=== PATIENT | male | born 1945 | race Caucasian/White ===

== ENCOUNTER → 2018-04-08 09:05 | Outpatient (POV) | payer OTHER, MEDICARE, SELFPAY | PROVIDERS: Visit Provider Dermatology | DX: Z00.00 Encounter for general adult medical examination without abnormal findings (principal) ==

== ENCOUNTER → 2018-05-20 09:32 | Outpatient (POV) | payer OTHER, MEDICARE, SELFPAY | PROVIDERS: Visit Provider Dermatology | DX: Z00.00 Encounter for general adult medical examination without abnormal findings (principal) ==

== ENCOUNTER → 2018-05-27 07:52 | Outpatient (POV) | payer OTHER, MEDICARE, SELFPAY | PROVIDERS: Visit Provider Dermatology | DX: Z00.00 Encounter for general adult medical examination without abnormal findings (principal) ==

== ENCOUNTER → 2018-07-29 08:00 | Outpatient (POV) | payer OTHER, MEDICARE, SELFPAY | PROVIDERS: Visit Provider Dermatology | DX: Z00.00 Encounter for general adult medical examination without abnormal findings (principal) ==

== ENCOUNTER → 2019-09-22 13:37 | Outpatient (POV) | payer OTHER, MEDICARE, SELFPAY | PROVIDERS: PCP Internal Medicine; Visit Provider Dermatology | DX: Z00.00 Encounter for general adult medical examination without abnormal findings (principal) ==

== ENCOUNTER → 2019-10-20 08:27 | Outpatient (POV) | payer OTHER, MEDICARE, SELFPAY | PROVIDERS: PCP Internal Medicine; Visit Provider Dermatology | DX: Z00.00 Encounter for general adult medical examination without abnormal findings (principal) ==

== ENCOUNTER → 2020-05-31 09:49 | Outpatient (POV) | payer OTHER, MEDICARE, SELFPAY | PROVIDERS: Visit Provider Dermatology | DX: Z00.00 Encounter for general adult medical examination without abnormal findings (principal) ==

== ENCOUNTER → 2021-01-16 17:53 | Outpatient (CLI) | payer MEDICARE, SELFPAY ==
[2021-01-16 18:39] LABS: Basophils # 0.1 K/mm3 (0-0.2); Basophils % 1.6 % (0.1-2.0); Eosinophils # 0.2 K/mm3 (0.0-0.4); Eosinophils % 2.8 % (0.1-12.0); Hematocrit 46.1 % (42.0-52.0); Hemoglobin 15.3 g/dL (14.1-18.0); Lymphocytes # 2.1 K/mm3 (0.7-4.5); Lymphocytes % 27.7 % (10-50); Mean Corpuscular HGB Conc 33.1 g/dL (31.8-35.4); Mean Corpuscular Volume 93.4 fl (80-94); Mean Platelet Volume 9.6 fl (7.4-10.4); Monocytes # 0.4 K/mm3 (0.1-1.0); Monocytes % 4.7 % (1.7-9.3); Neutrophils # 4.8 K/mm3 (1.8-7.8); Neutrophils % 63.2 % (37.0-80.0); Platelet Count 192 K/mm3 (142-424); Red Blood Count 4.94 M/mm3 (4.60-6.20); Red Cell Distribution Width 14.2 % (11.5-17.5); White Blood Count 7.5 K/mm3 (4.8-10.8)
[2021-01-16 18:55] LABS: Alanine Aminotransferase 21 U/L (12-78); Albumin Level 4.5 g/dl (3.5-5.0); Albumin/Globulin Ratio 1.6 (1.1-1.8); Alkaline Phosphatase 87 U/L (38-126); Aspartate Amino Transferase 32 U/L (17-59); Bilirubin,Total 0.9 mg/dl (0.2-1.3); Blood Urea Nitrogen 14 mg/dl (9-20); Carbon Dioxide 29 mmol/L (22.0-30.0); Chloride 101 mmol/L (98-107); Chol/HDL Ratio 4.9 (1-3.5); Cholesterol 199 mg/dl (140-200); Estimated Glomerular Filt Rate 83 ml/min (>60); GFR (African American) 100 ML/MIN (>60); Globulin 2.8 g/dL (1.3-3.2); Glucose 93 mg/dl (74-100); HDL Cholesterol 41 mg/dl (40-60); Sodium 141 mmol/L (136-145); Total Protein,Serum 7.3 g/dl (6.3-8.2); Triglycerides 167 mg/dl (30-150); VLDL Cholesterol 33 mg/dL (0-40)
[2021-01-16 19:06] LABS: Direct LDL Cholesterol 136.75 mg/dL (100-129)
[2021-01-17 09:37] LABS: Prostate Specific Ag, Diagnost 7.42 ng/ml (0.0-4.0)
== END ==
PROVIDERS: Visit Provider Internal Medicine
DX: I25.10 Atherosclerotic heart disease of native coronary artery without angina pectoris (principal); I10 Essential (primary) hypertension; C43.71 Malignant melanoma of right lower limb, including hip; C61 Malignant neoplasm of prostate; E78.5 Hyperlipidemia, unspecified; E53.8 Deficiency of other specified B group vitamins
CPT/HCPCS: 80053; 80061; 84153; 85025

== ENCOUNTER → 2021-06-20 11:17 | Outpatient (POV) | payer MEDICARE, SELFPAY | PROVIDERS: Visit Provider Dermatology | DX: Z00.00 Encounter for general adult medical examination without abnormal findings (principal) ==

== ENCOUNTER → 2021-07-18 12:24 | Outpatient (CLI) | payer MEDICARE, SELFPAY ==
[2021-07-18 13:49] LABS: Alanine Aminotransferase 30 U/L (12-78); Albumin Level 4.3 g/dl (3.5-5.0); Albumin/Globulin Ratio 1.4 (1.1-1.8); Alkaline Phosphatase 87 U/L (38-126); Anion Gap 12.8 mEq/L (5-15); Aspartate Amino Transferase 41 U/L (17-59); Blood Urea Nitrogen 14 mg/dl (9-20); Calcium 8.8 mg/dl (8.4-10.2); Carbon Dioxide 29 mmol/L (22.0-30.0); Chloride 104 mmol/L (98-107); Chol/HDL Ratio 5.8 (1-3.5); Cholesterol 207 mg/dl (140-200); Estimated Glomerular Filt Rate 82 ml/min (>60); GFR (African American) 100 ML/MIN (>60); Glucose 117 mg/dl (74-100); HDL Cholesterol 36 mg/dl (40-60); Potassium 3.8 mmoL/L (3.5-5.1); Sodium 142 mmol/L (136-145); Total Protein,Serum 7.3 g/dl (6.3-8.2); Triglycerides 147 mg/dl (30-150); VLDL Cholesterol 29 mg/dL (0-40)
[2021-07-18 14:00] LABS: Direct LDL Cholesterol 139.82 mg/dL (100-129)
[2021-07-18 14:37] LABS: Vitamin B12 609 pg/mL (239-931)
== END ==
PROVIDERS: PCP Internal Medicine; Visit Provider Internal Medicine
DX: I25.10 Atherosclerotic heart disease of native coronary artery without angina pectoris (principal); I10 Essential (primary) hypertension; E78.5 Hyperlipidemia, unspecified; E53.8 Deficiency of other specified B group vitamins; G60.9 Hereditary and idiopathic neuropathy, unspecified
CPT/HCPCS: 80053; 80061; 82607

== ENCOUNTER → 2022-05-09 12:53 | Outpatient (CLI) | payer MEDICARE, SELFPAY ==
[2022-05-09 13:37] LABS: Basophils # 0.1 K/mm3 (0-0.2); Basophils % 0.7 % (0.1-2.0); Eosinophils # 0.2 K/mm3 (0.0-0.4); Eosinophils % 3.5 % (0.1-12.0); Hematocrit 45.5 % (42.0-52.0); Hemoglobin 15.7 g/dL (14.1-18.0); Lymphocytes # 1.8 K/mm3 (0.7-4.5); Lymphocytes % 26.7 % (10-50); Mean Corpuscular HGB Conc 34.5 g/dL (31.8-35.4); Mean Corpuscular Hemoglobin 30.6 pg (27.0-31.2); Mean Corpuscular Volume 88.7 fl (80-94); Mean Platelet Volume 9.4 fl (7.4-10.4); Monocytes # 0.3 K/mm3 (0.1-1.0); Neutrophils # 4.4 K/mm3 (1.8-7.8); Neutrophils % 64.2 % (37.0-80.0); Platelet Count 190 K/mm3 (142-424); Red Blood Count 5.13 M/mm3 (4.60-6.20); Red Cell Distribution Width 14.4 % (11.5-17.5); White Blood Count 6.9 K/mm3 (4.8-10.8)
[2022-05-09 14:40] LABS: Alanine Aminotransferase 20 U/L (12-78); Albumin Level 4.6 g/dl (3.5-5.0); Albumin/Globulin Ratio 1.6 (1.1-1.8); Alkaline Phosphatase 109 U/L (38-126); Anion Gap 11.7 mEq/L (5-15); Aspartate Amino Transferase 30 U/L (17-59); Bilirubin,Total 1.5 mg/dl (0.2-1.3); Blood Urea Nitrogen 12 mg/dl (9-20); Calcium 8.6 mg/dl (8.4-10.2); Carbon Dioxide 27 mmol/L (22.0-30.0); Chloride 104 mmol/L (98-107); Chol/HDL Ratio 5.8 (1-3.5); Cholesterol 203 mg/dl (140-200); Estimated Glomerular Filt Rate 73 ml/min (>60); GFR (African American) 88 ML/MIN (>60); Globulin 2.9 g/dL (1.3-3.2); Glucose 103 mg/dl (74-100); HDL Cholesterol 35 mg/dl (40-60); Potassium 3.7 mmoL/L (3.5-5.1); Sodium 139 mmol/L (136-145); Total Protein,Serum 7.5 g/dl (6.3-8.2); Triglycerides 210 mg/dl (30-150); VLDL Cholesterol 42 mg/dL (0-40)
[2022-05-09 14:50] LABS: Direct LDL Cholesterol 136.64 mg/dL (100-129)
[2022-05-09 15:08] LABS: Prostate Specific Ag Screen 7.6 ng/ml (0.0-4.0)
[2022-05-09 15:27] LABS: Vitamin B12 325 pg/mL (239-931)
== END ==
PROVIDERS: PCP Internal Medicine; Visit Provider Internal Medicine
DX: I10 Essential (primary) hypertension (principal); E53.8 Deficiency of other specified B group vitamins; E78.5 Hyperlipidemia, unspecified; K58.0 Irritable bowel syndrome with diarrhea; C61 Malignant neoplasm of prostate; Z12.5 Encounter for screening for malignant neoplasm of prostate
CPT/HCPCS: 80053; 80061; 82607; 85025; G0103

== ENCOUNTER 2023-03-26 13:06 | Outpatient (POV) | payer MEDICARE, SELFPAY | END 2023-03-26 23:59 | disposition home or self-care (01) | LOC: SC 13:07 | PROVIDERS: PCP Internal Medicine; Visit Provider Dermatology | DX: Z00.00 Encounter for general adult medical examination without abnormal findings (principal) ==

== ENCOUNTER 2023-10-22 14:20 | Outpatient (POV) | payer MEDICARE, SELFPAY | END 2023-10-22 23:59 | disposition home or self-care (01) | LOC: SC 14:20 | PROVIDERS: PCP Internal Medicine; Visit Provider Dermatology | DX: Z00.00 Encounter for general adult medical examination without abnormal findings (principal) ==

== ENCOUNTER 2024-05-03 23:20 | Emergency (ER) | payer MEDICARE, SELFPAY ==
[2024-05-03 23:22] VITALS: BP 162/77; PULSE 96; RESP 28; TEMP 36.9; O2SAT 94; BMI 29.7
--- NOTE | 2024-05-03 23:37 | CT_ITS ---
PROCEDURE INFORMATION: Exam: CTA Abdomen and Pelvis With Contrast Exam date and time: 05/04/2024 12:19 AM Age: 79 years old Clinical indication: Abdominal pain; Generalized; Additional info: L lateral side pain, known melanoma TECHNIQUE: Imaging protocol: Computed tomographic angiography of the abdomen and pelvis with contrast. Exam focused on the arteries. 3D rendering (Not supervised by radiologist): MIP and/or 3D reconstructed images were created by the technologist. Radiation optimization: All CT scans at this facility use at least one of these dose optimization techniques: automated exposure control; mA and/or kV adjustment per patient size (includes targeted exams where dose is matched to clinical indication); or iterative reconstruction. Contrast material: ISOVUE; Contrast volume: 70 ml; Contrast route: INTRAVENOUS (IV); COMPARISON: CT ANGIO CHEST PE PROTOCOL 05/04/2024 12:19 AM FINDINGS: Aorta: No aortic aneurysm. No aortic dissection. Celiac trunk and mesenteric arteries: No occlusion or significant stenosis. Renal arteries: No occlusion or significant stenosis. Right iliac arteries: No occlusion or significant stenosis. Left iliac arteries: No occlusion or significant stenosis. Liver: No mass. Gallbladder and biliary ducts: Cholecystectomy Pancreas: Unremarkable. No mass. No ductal dilation. Spleen: Unremarkable. No splenomegaly. Adrenal glands: Unremarkable. No mass. Kidneys and ureters: Simple cyst in the right kidney requiring no further follow-up 3 cm Stomach and bowel: Unremarkable. No obstruction. No mucosal thickening. Appendix: No evidence of appendicitis. Intraperitoneal space: Unremarkable. No free air. No significant fluid collection. Lymph nodes: Unremarkable. No enlarged lymph nodes. Urinary bladder: Mild cystitis Reproductive: Unremarkable as visualized. Bones/joints: No acute fracture. Soft tissues: Small left inguinal hernia with fat IMPRESSION: 1. Cystitis otherwise no additional acute intra-abdominal or intrapelvic process 2. Abnormalities in the lung bases described on chest CT performed the same day
--- NOTE | 2024-05-03 23:37 | CT_ITS ---
PROCEDURE INFORMATION: Exam: CTA Chest With Contrast Exam date and time: 05/04/2024 12:19 AM Age: 79 years old Clinical indication: Pain; Left-sided; Additional info: L side pain melanoma PT TECHNIQUE: Imaging protocol: Computed tomographic angiography of the chest with contrast. Exam focused on the arteries. 3D rendering (Not supervised by radiologist): MIP and/or 3D reconstructed images were created by the technologist. Radiation optimization: All CT scans at this facility use at least one of these dose optimization techniques: automated exposure control; mA and/or kV adjustment per patient size (includes targeted exams where dose is matched to clinical indication); or iterative reconstruction. Contrast material: ISOVUE; Contrast volume: 70 ml; Contrast route: INTRAVENOUS (IV); COMPARISON: CT ANGIO ABDOMEN PELVIS 05/04/2024 12:19 AM FINDINGS: Pulmonary arteries: Normal. No pulmonary emboli. Aorta: Unremarkable. No aortic aneurysm. No aortic dissection. Lungs: Innumerable bilateral pulmonary nodules and masses reflecting metastatic disease. In the lung bases there is mild atelectasis versus early developing pneumonia Pleural spaces: Tiny bilateral pleural effusions. Heart: Unremarkable. No cardiomegaly. No pericardial effusion. Lymph nodes: Unremarkable. No enlarged lymph nodes. Bones/joints: Multilevel anterior bridging osteophyte formation. Soft tissues: Unremarkable. IMPRESSION: 1. No pulmonary embolism 2. Tiny bilateral pleural effusions. 3. Innumerable bilateral pulmonary nodules and masses reflecting metastatic disease. In the lung bases there is mild atelectasis versus early developing pneumonia
[2024-05-03 23:38] VITALS: BP 130/66; PULSE 85; O2SAT 95
--- NOTE | 2024-05-03 23:40 | ECG_ITS ---
APPROVED REPORT Exam: Resting ECG HR:83 bpm ECG Measurements Heart Rate 83 AXES QRSd 118 QRS -10 QT 378 T 31 QTc 418 Conclusion Sinus rhythm INCOMPLETE RIGHT BUNDLE BRANCH BLOCK [90+ ms QRS DURATION, TERMINAL R IN V1/V2, 40+ ms S IN I/aVL/V4/V5/V6] NONSPECIFIC T-WAVE ABNORMALITY No STEMI Electronically signed by : ROSE ORTEGA, 05/04/2024 06:31:40
--- NOTE | 2024-05-03 23:40 | HMH.EDGENADL ---
Discharge Plan Disposition Patient Disposition: Admitted Condition: Fair Prescriptions Prescriptions: No Action cyanocobalamin (vitamin B-12) 1,000 mcg tablet 1,000 mcg PO Patient Comments: TAKE ONE TABLET BY MOUTH EVERY DAY urea 45 % lotion 1 applic TOPICAL BID 90 Days Qty: 480 3RF atorvastatin 20 mg tablet 20 mg PO lisinopril-hydrochlorothiazide 10-12.5 mg tablet 1 tab PO DAILY Qty: 90 1RF Referrals Follow up/Referrals: Aaron Reinoso MD [Primary Care Provider] - See instructions Clinical Impressions Clinical Impression: Left-sided chest wall pain, Pleural effusion, Metastatic cancer Print Language Print Language: Citizen Of [place] Discharge ED Provider: Nicol Barone General Adult HPI General Chief complaint: PAIN Stated complaint: L side pain Time Seen by Provider: 05/03/24 23:24 History of Present Illness HPI narrative: 79-year-old male with known active melanoma currently on an experimental immunotherapy from [facility] presents to the ER with concerns of left side pain. Reportedly approximately 2 to 3 hours after dinner, around 9 PM, patient developed left side pain. Patient reports sharp pain and demonstrates to his left lateral ribs/flank. He states it does not radiate. He states it is worse with bending or twisting and movement, better at rest. gave the patient 3 Tylenol prior to arrival. He is not requesting any pain medication at this time. He denies any chest pain or difficulty breathing, pain is not worse with deep inspiration, he denies any dysuria or hematuria, no abdominal pain, nausea, vomiting, diarrhea, or constipation. Patient just started his third round of experimental treatment on Saturday and is taking this at home. Reportedly he is supposed to go back to [facility] on Saturday, 3 days from now, for a biopsy of a newly identified lesion on his skull according to . They report the patient has frequent full body imaging and does not have any other known sites of metastasis. Patient has no history of blood clot, kidney stone, bowel obstruction, or cardiac problems. Reportedly the only medications he is currently on are related to his cancer therapy. He has had no recent illness and denies fevers, chills, cough, congestion, or other associated symptoms. Related Data Home Medications ?Medication ?Instructions ?Recorded ?Confirmed cyanocobalamin (vitamin B-12) 1,000 mcg PO 10/12/20 07/26/21 1,000 mcg tablet atorvastatin 20 mg tablet 20 mg PO 07/26/21 07/26/21 Previous Rx's ?Medication ?Instructions ?Recorded urea 45 % lotion 1 applic topical BID dry skin 3 04/27/21 months #480 grams lisinopril 10 1 tab PO DAILY #90 tabs 08/28/ mg-hydrochlorothiazide 12.5 mg tablet Allergies Allergy/AdvReac Type Severity Reaction Status Date / Time No Known Allergies Allergy Verified 07/26/21 11:29 [facility] Disclaimer: The information contained in this section may have been updated after the patient was seen, as this information can be updated by other users. Social History Smoking Status: Never smoker alcohol intake: never current occupational status: retired Travel in the last 8 weeks: None Have you lived/traveled outside US in past 30 days?: No Contact w/someone who lives/traveled outside US past 30 days?: No Exposure to someone with infectious disease in past 14 days?: No Do you have a fever (greater than 100.4 F or 38 C)?: No Have you tested positive for COVID-19: No Exposed to someone with COVID-19 in past 14 days?: No Do you have a sore throat?: No Do you have a cough?: No Do you have any weakness?: No Do you have any diarrhea?: No Are you experiencing any unusual bleeding?: No Do you have any muscle aches/pain?: Yes Do you have any abdominal pain?: Yes Are you experiencing loss of taste or smell?: No Other Medical History Have you received the Pneumonia Vaccine: No ROS Obtained: Yes Systems reviewed as appropriate & no additional complaints except as documented per hpi Physical Exam General General appearance: alert and in no apparent distress Head Head exam: atraumatic and normocephalic Eye Eye exam: Present PERRL and EOMI ENT ENT exam: Present mucous membranes moist Neck Neck exam: Present normal inspection and full ROM Chest Chest inspection: Present symmetric chest wall rise and tenderness (Left lateral chest wall tenderness over the inferior, lateral ribs without findings of trauma, no overlying skin changes) Respiratory Respiratory exam: Present normal lung sounds bilaterally; Absent respiratory distress, wheezes or stridor Cardiovascular Cardiovascular exam: Present normal rhythm and tachycardia Abdominal Exam Abdominal exam: Present soft; Absent distention, tenderness, guarding or rebound Extremities Exam Extremities exam: Present full ROM and other (Right lower extremity bandaged secondary to melanoma wound, no findings of infection); Absent edema Back Exam Back exam: Absent CVA tenderness (R), CVA tenderness (L), paraspinal tenderness or vertebral tenderness Neurological Exam Neurological exam: Present alert, oriented X3 and normal gait; Absent motor sensory deficit Psychiatric Psychiatric exam: Present normal affect and normal mood Skin Skin exam: Present warm and dry; Absent rash Medical Decision Making Medical Records Screening: Per USPSTF and CDC recommendations, given the prevalence of disease in our region, it is our hospital?s policy to screen for HIV and viral Hepatitis for all patients aged 18 and over and those with ongoing risk factors. Quan Inquiry Pt receiving controlled substance: No Vital Signs: 05/03/24 23:22 05/03/24 23:38 05/04/24 00:00 Temperature 98.5 F Temperature Source Oral Pulse Rate 85 78 Pulse Rate [Left Radial] 96 H Respiratory Rate 28 H 22 Blood Pressure 130/66 125/65 Blood Pressure [Right Arm] 162/77 H Blood Pressure Mean [Right Arm] 105 Blood Pressure Source [Right Arm] Automatic Cuff Blood Pressure Position [Right Arm] Sitting 02 Sat by Pulse Oximetry 94 L 95 95 Oxygen Delivery Method Room Air 05/04/24 00:30 05/04/24 01:00 05/04/24 01:29 Temperature Temperature Source Pulse Rate 77 72 72 Pulse Rate [Left Radial] Respiratory Rate 21 24 22 Blood Pressure 130/66 124/63 128/66 Blood Pressure [Right Arm] Blood Pressure Mean [Right Arm] Blood Pressure Source [Right Arm] Blood Pressure Position [Right Arm] 02 Sat by Pulse Oximetry 96 96 96 Oxygen Delivery Method 05/04/24 02:00 05/04/24 02:30 05/04/24 03:00 Temperature Temperature Source Pulse Rate 71 73 75 Pulse Rate [Left Radial] Respiratory Rate 18 21 24 Blood Pressure 118/59 L 126/67 131/70 Blood Pressure [Right Arm] Blood Pressure Mean [Right Arm] Blood Pressure Source [Right Arm] Blood Pressure Position [Right Arm] 02 Sat by Pulse Oximetry 96 95 96 Oxygen Delivery Method 05/04/24 03:30 05/04/24 04:00 Temperature Temperature Source Pulse Rate 75 75 Pulse Rate [Left Radial] Respiratory Rate 25 H 18 Blood Pressure 142/73 H 132/69 Blood Pressure [Right Arm] Blood Pressure Mean [Right Arm] Blood Pressure Source [Right Arm] Blood Pressure Position [Right Arm] 02 Sat by Pulse Oximetry 95 95 Oxygen Delivery Method Lab Data Lab Results 05/03/24 00:00: NT-Pro-B Natriuret Pep 295 05/03/24 23:37: WBC 4.6 L, RBC 3.65 L, Hgb 11.4 L, Hct 33.9 L, MCV 92.9, MCH 31.2, MCHC 33.6, RDW 15.9, Plt Count 146, MPV 8.7, Neut % (Auto) 54.3, Lymph % (Auto) 30.2, Rains % (Auto) 12.3 H, Eos % (Auto) 2.4, Baso % (Auto) 0.4, Neut # (Auto) 2.5, Lymph # (Auto) 1.4, Rains # (Auto) 0.6, Eos # (Auto) 0.1, Baso # (Auto) 0.0, PT 9.8, INR 0.88 L, Sodium 139, Potassium 4.2, Chloride 107, Carbon Dioxide 23, Anion Gap 13.2, BUN 17, Creatinine 1.10, Estimated Creat Clear 79, Estimated GFR 65, Est GFR ( Amer) 79, Glucose 123 H, Lactate 3.0 H, Calcium 9.0, Total Bilirubin 0.5, AST 22, ALT 16, Alkaline Phosphatase 102, Troponin I < 0.01, Total Protein 6.8, Albumin 3.8, Globulin 3.0, Albumin/Globulin Ratio 1.3, Lipase 245, HCV Ab VALERIE w/Rflx PCR Qn Negative, HIV Ag/Ab Combo Qual Negative 05/03/24 23:47: Urine Color Yellow, Urine Appearance Clear, Urine pH 7.5, Ur Specific [place] 1.020, Urine Protein Negative, Urine Glucose (UA) Negative, Urine Ketones Negative, Urine Blood Negative, Urine Nitrate Negative, Urine Bilirubin Negative, Urine Urobilinogen 1.0, Ur Leukocyte Esterase Trace, Urine RBC None, Urine WBC Occasional, Ur Squamous Epith Cells 3-5, Amorphous Sediment 1+, Urine Bacteria Trace 05/04/24 02:20: Lactate 2.8 H, Troponin I < 0.01 05/03/24 23:37 05/03/24 23:37 Orders (Tests/Meds): ED MEDICATIONS Discontinued Medications Generic Name Dose Route Start Last Admin Trade Name Ted PRN Reason Stop Dose Admin Lactated Ringer's 500 mls @ 999 mls/hr 05/03/24 23:38 05/03/24 23:55 Lactated Ringer's 500ml IV 05/04/24 00:08 999 mls/hr .Q31M ONE Administration Iopamidol 70 ml 05/04/24 00:29 05/04/24 00:30 Iopamidol-370 (76%);100ml Bottle IV 05/04/24 00:30 70 ml ONCE ONE Administration Lidocaine 1 each 05/03/24 23:42 05/03/24 23:55 Lidocaine 5% Transdermal Patch TP 05/03/24 23:43 1 each ONCE ONE Administration Methocarbamol 500 mg 05/04/24 03:46 05/04/24 03:52 Methocarbamol 500mg Tablet PO 05/04/24 03:47 500 mg ONCE ONE Administration Oxycodone HCl 2.5 mg 05/04/24 03:45 05/04/24 03:52 Oxycodone 5mg Immediate Release Tablet PO 05/04/24 03:46 2.5 mg ONCE ONE Administration Sodium Chloride 50 ml 05/04/24 00:29 05/04/24 00:29 0.9 % Sodium Chloride 50 Ml Vial IV 05/04/24 00:30 50 ml ONCE ONE Administration Sodium Chloride 10 ml 05/04/24 00:29 05/04/24 00:29 Sodium Chloride 0.9% 10ml Syr (Rad Only) IV 05/04/24 00:30 10 ml ONCE ONE Administration ORDERS Category Date Time Status CT angio abdomen pelvis Stat Cat Scan 05/03/24 23:[address] angio chest PE protocol Stat Cat Scan 05/03/24 23:37 Completed BNP [NT Pro Brain Natriuretic Pep.] Stat Lab 05/04/24 02:47 Completed CBC w/Auto Diff [Complete Blood Count Auto Diff] Stat Lab 05/03/24 23:37 Completed CMP [Comprehensive Metabolic Panel] Stat Lab 05/03/24 23:37 Completed HIV Combo Stat Lab 05/03/24 23:37 Completed Hepatitis C Ab Qual. W/ RFX Stat Lab 05/03/24 23:37 Completed Lactic Acid Stat Lab 05/03/24 23:37 Completed Lactic Acid Stat Lab 05/04/24 02:20 Completed Lipase Stat Lab 05/03/24 23:37 Completed PT INR [Prothrombin Time INR] Stat Lab 05/03/24 23:37 Completed Trop I [Troponin I] Stat Lab 05/03/24 23:37 Completed Troponin I Q3H Lab 05/04/24 02:20 Completed Troponin I Q3H Lab 05/04/24 05:45 Ordered Urinalysis and Microscopic Stat Lab 05/03/24 23:47 Completed CA echo doppler complete Stat Y 05/04/24 03:44 Ordered ECG Request Stat Y 05/03/24 23:40 Ordered Medical Decision Narrative: HerIn summary, this 79-year-old male with comorbidities described in the HPI which may not be at goal therapy and complicate the amount of data to be reviewed as well as his overall morbidity presents to the emergency department today with left side pain. On initial evaluation patient is mildly tachycardic, he is saturating in the low 90s on room air with good breath sounds throughout, patient has tenderness to palpation and percussion of the left lateral lower ribs without overlying skin changes or evidence of trauma, no CVA tenderness, no tenderness of the vertebral or paraspinal muscles, no overlying skin changes, no abdominal tenderness. Differential diagnosis includes but is not limited to atypical ACS, since patient is a cancer patient he has increased risk of hypercoagulability and could have PE, also considered nephrolithiasis, ureterolithiasis, UTI, pyelonephritis, splenic or kidney infarct, muscle spasm, considered shingles but have no evidence of overlying skin changes, considered bowel obstruction but patient has no abdominal tenderness, nausea, vomiting, or changes in bowel habits. Additionally I considered the possibility of this being a side effect of patient's current immunotherapy. Based on these concerns, I ordered broad workup including serum labs, lactic, lipase, CT imaging of the chest, abdomen, pelvis with angiography studies, cardiac workup. ECG personally interpreted demonstrates sinus rhythm, rate 83, normal axis, normal QTc, right bundle branch block, no STEMI. Patient received lidocaine patch for treatment since he did not want any other pain medications. Labs personally reviewed demonstrate patient is mildly leukopenic with WBC 4.6 but no neutropenia, he is anemic with hemoglobin 11.4, compared to most recent available labs from May 2022, this is down from 15.7. CMP generally unremarkable, patient's lactic is elevated at 3.0, he was receiving IV fluids. Troponin undetectably low less than 0.01, lipase normal at 245, UA negative for findings of infection. CTA PE personally interpreted does not demonstrate large PE, patient has multiple nodules in the bilateral lungs. Concern for significant metastatic burden. Patient also has small bilateral pleural effusion. Radiology read pending. When I discussed these findings with the patient and his , they were not aware of the significant metastatic disease, reported patient had previously had some lung nodules. She was able to find an old CT report from [facility] which she showed me. This demonstrates pulmonary nodularity, they did not discuss pleural effusion or the quantity of nodules. Still unclear if this is new or old. See radiology reads for full interpretations. CT angiography of the abdomen pelvis personally interpreted demonstrates no evidence of splenic infarct or acute kidney problem, see radiology read for final interpretation. Radiology read comments on possible cystitis, however there is not evidence of this on labs I am concerned about patient's elevated lactic as well as pleural effusions and his pain being stable despite receiving lidocaine patch. I had an interactive discussion with Dr. Lerma with [facility] oncology. We reviewed labs and imaging. He is unable to view our images but does state patient has a history of significant nodularity in the bilateral lungs believed to be metastatic. He states the pleural effusions are new. He recommends the patient be admitted to our facility for echo and further cardiac workup to evaluate whether the new bilateral pleural effusions are cardiac in nature. I explained to him that I have low suspicion for cardiac etiology since patient is not having chest pain or difficulty breathing, he also does not have significant peripheral edema. I also explained to him that our facility does not have inpatient oncology and that typically we are not able to admit patients with such significant comorbidities. He stated he does not believe the patient requires transfer and does not believe that the patient requires inpatient oncology treatment at this time and simply requires an echo to evaluate cardiac function and to further evaluate the etiology of his pleural effusions. I explained that I would discuss this with the hospitalist and see what their input is. I discussed this case with Montrell, the hospitalist, he agrees that the patient likely is not appropriate for admission to our facility given his significant comorbidities with the ongoing metastatic melanoma and a clinical trial, however he is going to look into it further and discuss with the attending. Montrell discussed with the attending and evaluated the patient. After discussion with the attending and evaluation of the patient, he recommends ED observation until echo team is available this morning. He also recommended pain control with additional medications. I explained to him I had not administered muscle relaxer or narcotics due to not having an obvious etiology such as fracture, bony metastasis, with which he agrees but recommended additional pain control since patient does have significant pain with palpation. Patient was placed into ED observation at 0350 for continued symptomatic monitoring and management as well as to receive an echo when the team becomes available prior to determining disposition. Repeat lactic still elevated at 2.8, I discussed this with the hospitalist as well, we agree this could be related to tumor burden, immunotherapy, among many other etiologies and that it likely is not contributing to the patient's symptoms at this time. Patient is actively tolerating oral intake. He remains in ED observation. BNP normal at 295. On reassessment nearly 2 hours after receiving additional pain medications, patient still has severe pain with movement and reproducible tenderness. He also is saturating 87 to 90% on room air, nasal cannula applied. I discussed this update with the hospitalist. Patient accepted for admission for echo, pain control, and further evaluation of pleural effusion. Patient admitted in stable condition. Critical Care Critical Care Time Critical Care Time: No
[2024-05-03 23:46] LABS: Basophils % 0.4 % (0.1-2.0); Eosinophils # 0.1 K/mm3 (0.0-0.4); Eosinophils % 2.4 % (0.1-12.0); Hematocrit 33.9 % (42.0-52.0); Hemoglobin 11.4 g/dL (14.1-18.0); Lymphocytes # 1.4 K/mm3 (0.7-4.5); Lymphocytes % 30.2 % (10-50); Mean Corpuscular HGB Conc 33.6 g/dL (31.8-35.4); Mean Corpuscular Hemoglobin 31.2 pg (27.0-31.2); Mean Corpuscular Volume 92.9 fl (80-94); Mean Platelet Volume 8.7 fl (7.4-10.4); Monocytes # 0.6 K/mm3 (0.1-1.0); Monocytes % 12.3 % (1.7-9.3); Neutrophils # 2.5 K/mm3 (1.8-7.8); Neutrophils % 54.3 % (37.0-80.0); Platelet Count 146 K/mm3 (142-424); Red Blood Count 3.65 M/mm3 (4.60-6.20); Red Cell Distribution Width 15.9 % (11.5-17.5); White Blood Count 4.6 K/mm3 (4.8-10.8)
[2024-05-03 23:51] LABS: Microscopic, Urine URINE MICROSCOPIC (MICROSCOPIC)
[2024-05-03 23:54] LABS: Albumin Level 3.8 g/dl (3.5-5.0); Chloride 107 mmol/L (98-107); Potassium 4.2 mmoL/L (3.5-5.1); Sodium 139 mmol/L (136-145)
[2024-05-03] MEDS: RINGERS SOLUTION,LACTATED 500 ML 999 ML IV (23:55)
[2024-05-03] MEDS: LIDOCAINE 5% TRANSDERMAL PATCH 1 EACH TP (23:55)
[2024-05-03 23:57] LABS: Alanine Aminotransferase 16 U/L (12-78); Albumin/Globulin Ratio 1.3 (1.1-1.8); Alkaline Phosphatase 102 U/L (38-126); Anion Gap 13.2 mEq/L (5-15); Aspartate Amino Transferase 22 U/L (17-59); Bilirubin,Total 0.5 mg/dl (0.2-1.3); Blood Urea Nitrogen 17 mg/dl (9-20); Carbon Dioxide 23 mmol/L (22.0-30.0); Creatinine Clearance Estimated 79 mL/min (50-200); Estimated Glomerular Filt Rate 65 ml/min (>60); GFR (African American) 79 ML/MIN (>60); Total Protein,Serum 6.8 g/dl (6.3-8.2)
[2024-05-03 23:58] LABS: Glucose 123 mg/dl (74-100); Lipase 245 U/L (23-300)
[2024-05-03 23:58] LABS: Appearance,Urine CLEAR (Clear); Bilirubin,Urine Negative (Negative); Blood, Urine Negative (Negative); Color,Urine YELLOW (Yellow); Glucose,Urine (UA) Negative (Negative); Ketones,Urine Negative (Negative); Leukocyte Esterase,Urine TRACE (Negative); Nitrate,Urine Negative (Negative); PH,Urine 7.5 (5.0-8.5); Protein,Urine Negative (Negative)
[2024-05-04] VITALS (20 sets, daily range): BP systolic 118–142; BP diastolic 59–73; PULSE 71–86; RESP 13–27; TEMP 36.9; O2SAT 91–98
[2024-05-04 00:11] LABS: Troponin I < 0.01 ng/ml (0.00-0.034)
[2024-05-04 00:14] LABS: Amorphous Sediment,Urine 1+ /lpf; Bacteria,Urine Trace /lpf; WBC,Urine Occasional #/hpf (0-3)
[2024-05-04] MEDS: SODIUM CHLORIDE 0.9% 10ML SYR (RAD ONLY) 10 ML IV (00:29)
[2024-05-04] MEDS: 0.9 % SODIUM CHLORIDE 50 ML VIAL IV (00:29)
[2024-05-04] MEDS: IOPAMIDOL-370 (76%);100ML BOTTLE 70 ML IV (00:30)
[2024-05-04 01:13] LABS: INR 0.88 (0.9-1.1); Prothrombin Time 9.8 seconds (9.2-12.1)
--- NOTE | 2024-05-04 01:20 | PC.NURSE ---
Called [place] transfer center to consult/transfer
--- NOTE | 2024-05-04 01:58 | PC.NURSE ---
rounded on pt. is at bedside. no needs voiced at this time. call light in reach. Waiting for call back from [facility]
[2024-05-04 02:09] LABS: HIV Combo NEGATIVE (Negative)
[2024-05-04 02:17] LABS: Hepatitis C Ab Qual. W/ RFX NEGATIVE (Negative)
--- NOTE | 2024-05-04 02:39 | PC.NURSE ---
Barone speaking to [facility] at this time.
[2024-05-04 02:43] LABS: Lactic Acid 2.8 mmol/L (0.7-2.1)
[2024-05-04 02:51] LABS: Troponin I < 0.01 ng/ml (0.00-0.034)
[2024-05-04 03:19] LABS: NT Pro Brain Natriuretic Pep. 295 pg/mL (0-450)
[2024-05-04 03:43] LABS: Reflex Lactic Add Lactic Reflex
--- NOTE | 2024-05-04 03:44 | CA_ITS ---
APPROVED REPORT EXAM: Comprehensive 2D, Doppler, and color-flow Echocardiogram Dermatologist: Cecilia Desai RDCS Ht: 6 ft 0 in Wt: 219lbs BSA: 2.21 BP: 132/69 mmHg Indications: PL EFF,MELANOMA POOR ACOUSTIC WINDOWS IN APICAL VIEWS M-Mode Dimensions RVDd 1.97 cm (0.9-2.6) LA Diam 4.08 cm (1.9-4.0) LVDd 6.00 cm (3.5-5.7) LVDs 4.36 cm (3.5-5.7) IVSd 0.80 cm (0.6-1.1) PWd 0.80 cm (0.6-1.1) EF (Teich) 52.30% FS 27.30% EDV (Teich) 180.00 mL ESV (Teich) 85.80 mL LV Diastology E Decel Time 207 (160-240 msec) E/A Ratio 0.6 Mitral Valve MV E Max Gabino. 41.0 (40-130 cm/s) MV A Velocity 66.0 (40-130 cm/s) E/A Ratio 0.61 MV PHT 61.0 ms Left Ventricle The left ventricle is normal size. The left ventricular systolic function is normal. The left ventricular ejection fraction is within the normal range. There is increased LV wall thickness. There is normal LV segmental wall motion. Transmitral Doppler flow pattern suggests impaired LV relaxation. LVEF is 55%. Right Ventricle The right ventricle is normal size. The right ventricular systolic function is normal. Atria The left atrium is mildly dilated. The right atrium is not well-visualized. The interatrial septum is not well-visualized. Aortic Valve The aortic valve is mildly thickened. There is no aortic valvular stenosis. No aortic regurgitation is present. Mitral Valve The mitral valve is normal in structure. No evidence of mitral valve stenosis. Trace mitral regurgitation. Tricuspid Valve Tricuspid valve is grossly normal in structure and function. Trace tricuspid regurgitation. There is insufficient TR jet to estimate RVSP. Pulmonic Valve The pulmonary valve is normal in structure. Trace pulmonic regurgitation. Great Vessels The aortic root is normal in size. The ascending aorta is not well-visualized. IVC is normal in size and collapses >50% with inspiration. Pericardium There is no pericardial effusion. Other Information Study Quality: Technically Difficult Conclusion Technically difficult study due to poor acoustic windows. Normal biventricular systolic function. Mild LA dilation. No significant valvular stenosis or regurgitation. Electronically signed by : Mary Lou Catalan MD 05/04/2024 11:57:07
[2024-05-04] MEDS: METHOCARBAMOL 500MG TABLET 500 MG PO (03:52)
[2024-05-04] MEDS: OXYCODONE 5MG IMMEDIATE RELEASE TABLET 2.5 MG PO (03:52)
--- NOTE | 2024-05-04 04:18 | PC.NURSE ---
Rounded on pt. Pt voices no needs. at bedside. call light in reach.
--- NOTE | 2024-05-04 04:21 | EXP.MED.CON ---
Documented by User: Montrell Hartley, RAMONA 05/05/24 06:38 History of Present Illness *Admission Date: 05/04/24 *Reason for visit:: Flank Pain *History of present illness: The patient is a 79-year-old male with known active metastatic melanoma currently enrolled in an experimental immunotherapy program at the [facility]. He presented to the emergency department due to left-sided pain that started around 9:00 PM (approximately two to three hours after dinner). He describes the pain as sharp along the left lateral ribs/flank, worse with bending, twisting, or other movements, and improves with rest. He denies any radiation of pain, no chest pain, difficulty breathing, or worsening with deep inspiration. He also denies dysuria, hematuria, abdominal pain, nausea, vomiting, diarrhea, or constipation. Prior to arrival, his gave him three Tylenol, and he reports that he currently does not require additional pain medication. His past medical history is notable for metastatic melanoma with frequent imaging and a new skull lesion that is scheduled for biopsy in three days at the [facility]. He has no known history of blood clots, kidney stones, bowel obstruction, or cardiac problems. He states that all his current medications are specifically related to his cancer therapy. He denies any recent illness and reports no fevers, chills, cough, or congestion. Vital signs in the emergency department are stable. Preliminary lab work shows mild leukopenia, mild anemia, mild thrombocytopenia, an elevated lactate of 3.0, and a moderately elevated lipase of 245. Urinalysis reveals trace leukocyte esterase and occasional white blood cells, but no RBCs and no significant bacteriuria. A CTA of the chest rules out pulmonary embolism but notes tiny bilateral pleural effusions and innumerable bilateral pulmonary nodules and masses consistent with metastatic disease. Mild atelectasis versus early pneumonia is also noted at the lung bases. A subsequent CT scan of the abdomen shows findings consistent with mild cystitis but no other acute intra-abdominal or intrapelvic process. Overall, the patient remains hemodynamically stable with persistent position-dependent left flank/rib pain as his primary complaint. [facility] Disclaimer: The information contained in this section may have been updated after the patient was seen, as this information can be updated by other users. Social History Smoking Status: Never smoker alcohol intake: never current occupational status: retired Travel in the last 8 weeks: None Review of Systems Review of Systems Review of systems (narrative): 13 point review of systems negative except as listed in HPI Exam Data for Last 24 hours Vital signs and Labs for Last 24 Hours: Temp Pulse Resp BP Pulse Ox O2 Del Method 98.5 F 72 22 128/66 96 Room Air 05/03/24 23:22 05/04/24 01:29 05/04/24 01:29 05/04/24 01:29 05/04/24 01:29 05/03/24 23:22 Laboratory Results - last 24 hr 05/03/24 00:00: NT-Pro-B Natriuret Pep 295 05/03/24 23:37: WBC 4.6 L, RBC 3.65 L, Hgb 11.4 L, Hct 33.9 L, MCV 92.9, MCH 31.2, MCHC 33.6, RDW 15.9, Plt Count 146, MPV 8.7, Neut % (Auto) 54.3, Lymph % (Auto) 30.2, [place] % (Auto) 12.3 H, Eos % (Auto) 2.4, Baso % (Auto) 0.4, Neut # (Auto) 2.5, Lymph # (Auto) 1.4, [place] # (Auto) 0.6, Eos # (Auto) 0.1, Baso # (Auto) 0.0, PT 9.8, INR 0.88 L, Sodium 139, Potassium 4.2, Chloride 107, Carbon Dioxide 23, Anion Gap 13.2, BUN 17, Creatinine 1.10, Estimated Creat Clear 79, Estimated GFR 65, Est GFR ( Amer) 79, Glucose 123 H, Lactate 3.0 H, Calcium 9.0, Total Bilirubin 0.5, AST 22, ALT 16, Alkaline Phosphatase 102, Troponin I < 0.01, Total Protein 6.8, Albumin 3.8, Globulin 3.0, Albumin/Globulin Ratio 1.3, Lipase 245, HCV Ab VALERIE w/Rflx PCR Qn Negative, HIV Ag/Ab Combo Qual Negative 05/03/24 23:47: Urine Color Yellow, Urine Appearance Clear, Urine pH 7.5, Ur Specific [place] 1.020, Urine Protein Negative, Urine Glucose (UA) Negative, Urine Ketones Negative, Urine Blood Negative, Urine Nitrate Negative, Urine Bilirubin Negative, Urine Urobilinogen 1.0, Ur Leukocyte Esterase Trace, Urine RBC None, Urine WBC Occasional, Ur Squamous Epith Cells 3-5, Amorphous Sediment 1+, Urine Bacteria Trace 05/04/24 02:20: Lactate 2.8 H, Troponin I < 0.01 I & O for Last 24 hours: Intake & Output 05/01/24 05/02/24 05/03/24 05/04/24 23:59 23:59 23:59 23:59 Weight 99.337 kg Meds Home Medications and Allergies Home Medications ?Medication ?Instructions ?Recorded ?Confirmed ?Type cyanocobalamin (vitamin B-12) 1,000 mcg PO 10/12/20 07/26/21 History 1,000 mcg tablet urea 45 % lotion 1 applic topical BID dry skin 3 04/27/21 07/26/21 Rx months #480 grams atorvastatin 20 mg tablet 20 mg PO 07/26/21 07/26/21 History lisinopril 10 1 tab PO DAILY #90 tabs 08/29/23 Rx mg-hydrochlorothiazide 12.5 mg tablet New Prescriptions to Start Prescriptions: Allergies Allergy/AdvReac Type Severity Reaction Status Date / Time No Known Allergies Allergy Verified 07/26/21 11:29 Results Labs 05/03/24 23:37 05/03/24 23:37 Labs: Abnormal lab results 05/03/24 05/04/24 Range/Units 23:37 02:20 WBC 4.6 L (4.8-10.8) K/mm3 RBC 3.65 L (4.60-6.20) M/mm3 Hgb 11.4 L (14.1-18.0) g/dL Hct 33.9 L (42.0-52.0) % [place] % (Auto) 12.3 H (1.7-9.3) % INR 0.88 L (0.9-1.1) Glucose 123 H (74-100) mg/dl Lactate 3.0 H 2.8 H (0.7-2.1) mmol/L H & H 05/03/24 Range/Units 23:37 Hgb 11.4 L (14.1-18.0) g/dL Hct 33.9 L (42.0-52.0) % Coagulation 05/03/24 Range/Units 23:37 INR 0.88 L (0.9-1.1) All other labs normal. Assessment and Plan *Assessment and plan (1) Metastatic cancer: Status: Acute Category: Medical Code(s): C79.9 - Secondary malignant neoplasm of unspecified site (2) Pleural effusion: Status: Acute Category: Medical Code(s): J90 - Pleural effusion, not elsewhere classified (3) Left-sided chest wall pain: Status: Acute Category: Medical Code(s): R07.89 - Other chest pain Documented by User: Andrew Duarte MD 05/13/24 08:09 [facility] Social History Smoking Status: Never smoker alcohol intake: never current occupational status: retired Travel in the last 8 weeks: None Exam Constitutional Constitutional: mild distress, average body habitus, chronically ill appearing and cooperative *Routine HEENT Exam Head: Present normocephalic Eye: Present EOMI and PERRL ENT: Present mucous membranes moist *Routine Neck Exam Neck: Present supple; Absent lymphadenopathy *Routine Respiratory Exam Respiratory: Present crackles; Absent rhonchi *Routine Cardiovascular Exam Cardiovascular: Present RRR *Routine Abdominal Exam Abdominal: Present soft and normoactive bowel sounds; Absent tenderness *Routine Rectal Exam Patient deferred: visual exam *Routine Exam Patient deferred: penile exam *Routine Extremities Exam Extremities: Absent cyanosis, clubbing or edema *Routine Skin Exam Skin: Present warm; Absent rash *Routine Neurological Exam Neurological: Present alert, oriented X3 and moving all extremities; Absent altered mental status Meds Home Medications and Allergies Home Medications ?Medication ?Instructions ?Recorded ?Confirmed ?Type cyanocobalamin (vitamin B-12) 1,000 mcg PO 10/12/20 07/26/21 History 1,000 mcg tablet urea 45 % lotion 1 applic topical BID dry skin 3 04/27/21 07/26/21 Rx months #480 grams atorvastatin 20 mg tablet 20 mg PO 07/26/21 07/26/21 History lisinopril 10 1 tab PO DAILY #90 tabs 08/29/23 Rx mg-hydrochlorothiazide 12.5 mg tablet New Prescriptions to Start Prescriptions: Allergies Allergy/AdvReac Type Severity Reaction Status Date / Time No Known Allergies Allergy Verified 07/26/21 11:29 Results Labs 05/03/24 23:37 05/03/24 23:37 Assessment and Plan *Assessment and plan (1) Metastatic cancer: Status: Acute Category: Medical Code(s): C79.9 - Secondary malignant neoplasm of unspecified site (2) Pleural effusion: Status: Acute Category: Medical Code(s): J90 - Pleural effusion, not elsewhere classified (3) Left-sided chest wall pain: Status: Acute Category: Medical Code(s): R07.89 - Other chest pain Plan Mr. Castanon is a 79-year-old male with widely metastatic melanoma on experimental treatment managed by oncology at [facility]. Medicine was consulted to evaluate for possible admission and further management of pleural effusions and pain control. Discussed case with ER physician, they had spoken to oncology at [facility] who recommended admission for echo and further cardiac workup given the new bilateral pleural effusions. eJff had extensive discussion with the ER and requested patient maintain in observation in the ER and have echo performed in the morning prior to considering admission. Echo was obtained and Jesika was contacted again after completing echo. Given the nature of his treatment is experimental, concerned that the etiology of his effusions is related to his malignant melanoma, we do not feel at this time we have the services at our facility to appropriately manage this patient and recommend transfer to higher level of care where he can be managed by his oncology team as well as subspecialist such as pulmonology or cardiology and concerted effort given the nature of his underlying disease and experimental nature of his treatment. Na[facility] was contacted and patient accepted by hospital medicine and oncology for further management. Thank you for the opportunity to consult on this patient
--- NOTE | 2024-05-04 04:32 | PC.NURSE ---
Pt resting comfortably in bed at bedside Siderails up x2. Belongings in reach, call light in reach Bed in low position
--- NOTE | 2024-05-04 05:13 | PC.NURSE ---
pt in ED obs per MD Barone for pain control and echo in the AM
--- NOTE | 2024-05-04 05:46 | PC.NURSE ---
pt placed on 2L NC. O2 sat 88%
--- NOTE | 2024-05-04 06:34 | PC.NURSE ---
rounded on pt at this time. pt voices no needs. at bedside. call light in reach. pt now on 1L NC O2 sat 96%.
--- NOTE | 2024-05-04 06:44 | PC.NURSE ---
pt now on RA
--- NOTE | 2024-05-04 07:15 | PC.NURSE ---
ECHO at bedside
--- NOTE | 2024-05-04 08:02 | PC.NURSE ---
SPEAKING WITH OF ONCOLOGY
--- NOTE | 2024-05-04 08:58 | PC.NURSE ---
report called nathan at [facility] [address] [facility] [phone]
--- NOTE | 2024-05-04 09:07 | PC.NURSE ---
EMS called and given Pt information for transfer.
--- NOTE | 2024-05-04 09:36 | PC.NURSE ---
Rounded on pt to see if they had any needs. Pt had no needs at this time
== END 2024-05-04 10:07 | disposition short-term general hospital (02) ==
PROVIDERS: Emergency Medicine; Emergency Provider Student in an Organized Health Care Education/Training Program; PCP Internal Medicine
DX: R07.89 Other chest pain (principal); J90 Pleural effusion, not elsewhere classified; C79.9 Secondary malignant neoplasm of unspecified site; R10.9 Unspecified abdominal pain
CPT/HCPCS: 71275; 74174; 80053; 81001; 83605; 83690; 83880; 84484; 85025; 85610; 86803; 87389; 93005; 93306; 96360; 99285; J7120; Q9967

== ENCOUNTER 2024-05-18 09:44 | Outpatient (RCR) | payer MEDICARE, SELFPAY | END 2024-05-18 23:59 | disposition home or self-care (01) | LOC: PT 09:44 | PROVIDERS: Visit Provider Internal Medicine | DX: C43.9 Malignant melanoma of skin, unspecified (principal) | CPT/HCPCS: 97163 ==